=== PATIENT | female | born 1975 | race American Indian/Alaskan Native ===

== ENCOUNTER 2016-12-28 17:36 | Emergency (ER) | payer OTHER ==
[2016-12-28 19:15] LABS: Basophils % (Auto) 0.7 % (0.0-1.8); Eosinophils % (Auto) 0.9 % (0.0-4.3); Hematocrit 40.2 % (30.3-42.9); Hemoglobin 13.1 gm/dl (10.1-14.3); Mean Corpuscular HGB Conc 33 % (30-34); Mean Corpuscular Hemoglobin 30 pg (28-32); Mean Corpuscular Volume 93 fl (79-97); Platelet Count 234 K/mm3 (140-440); Red Blood Count 4.34 M/mm3 (3.65-5.03); Red Cell Distribution Width 13.9 % (13.2-15.2); White Blood Count 6.2 K/mm3 (4.5-11.0)
[2016-12-28 19:25] LABS: INR 0.89 (0.87-1.13)
[2016-12-28 19:26] LABS: Partial Thromboplastin Time 24.7 Sec. (24.2-36.6)
[2016-12-28 19:29] LABS: Anion Gap 19 mmol/L; BUN/Creatinine Ratio 21.42; Blood Urea Nitrogen 15 mg/dL (7-17); Calcium 8.9 mg/dL (8.4-10.2); Carbon Dioxide 24 mmol/L (22-30); Chloride 99.4 mmol/L (98-107); Glucose 99 mg/dL (65-100); Potassium 3.6 mmol/L (3.6-5.0); Sodium 139 mmol/L (137-145)
[2016-12-28 19:33] LABS: Creatine Kinase 57 units/L (30-135)
[2016-12-28 19:34] LABS: Creatine Kinase MB < 1.0 ng/mL (0.0-4.0)
--- NOTE | 2016-12-29 03:44 | Emergency Department Report ---
ED Shortness of Breath HPI - General Chief Complaint: Dyspnea/Respdistress Stated Complaint: SOB Time Seen by Provider: 12/29/16 03:28 Source: patient Mode of arrival: Ambulatory Limitations: No Limitations - History of Present Illness Initial Comments: 41-year-old female with a past medical history of morbid obesity and pulmonary embolism in 2008 presents to the hospital complains of sudden onset shortness of breath and chest pain. Patient states she was resting watching TV. She develops shortness of breath that was worse with exertion. Patient began coughing and having left-sided chest tightness with wheezing. Patient now complains of a dull left-sided chest pain as worse with inspiration and palpation. Patient has chronic lower extremity swelling with right greater than left secondary to previous ankle surgery. She does not complain of any increased leg swelling, or calf tenderness. She is not currently on Coumadin or any other anticoagulation. Vision denies any persistent coughing or fever. Previous medical record review patient was diagnosed with PE on CT in July 2009 however, she has since had a negative V/Q scan in 2013. - Related Data Home Medications Medication Instructions Recorded Confirmed Last Taken Atenolol [Tenormin] 50 mg PO QPM 12/09/14 12/29/16 12/27/16 Multivitamin Tab [Multiple Vitamin 1 each PO QDAY 12/29/16 12/29/16 Unknown TAB (Theragran)] Allergies Allergy/AdvReac Type Severity Reaction Status Date / Time levothyroxine sodium Allergy Swelling Verified 12/28/16 17:49 meperidine HCl [From Demerol] Allergy Seizure Verified 12/28/16 17:49 morphine Allergy Unknown Verified 12/28/16 17:49 oxycodone Allergy Vomiting Verified 12/28/16 17:49 ED Review of Systems ROS: Stated complaint: SOB Other details as noted in HPI Comment: All other systems reviewed and negative Other: Constitutional: No fevers chills Eyes: No eye pain visual changes ENT: No ear pain or throat pain Neck: Denies pain Respiratory: Denies cough wheezing Cardiovascular: Denies palpitations, syncope GI: Denies abdominal pain, nausea : Denies dysuria Musculoskeletal: Denies back pain, joint swelling Skin: Denies rash, lesions, erythema Neurologic: Denies headache, numbness, weakness Psychiatric: Denies suicidal ideation, hallucinations ED Past Medical Hx - Past Medical History Hx Hypertension: Yes Hx Congestive Heart Failure: No Hx Pulmonary Embolism: Yes (07/2009) Hx Arthritis: Yes Hx Asthma: No Hx HIV: No Additional medical history: OBESITY - Surgical History Hx Cholecystectomy: Yes (2001) Additional Surgical History: hysterectomy. RIGHT SHOULDER SPUR REMOVED. RIGHT ANKLE SURGERY. INGUINAL HERNIA SURGERY - Social History Smoking Status: Never Smoker Substance Use Type: Alcohol - Medications Home Medications: Home Medications Medication Instructions Recorded Confirmed Last Taken Type Atenolol [Tenormin] 50 mg PO QPM 12/09/14 12/29/16 12/27/16 History Multivitamin Tab [Multiple Vitamin 1 each PO QDAY 12/29/16 12/29/16 Unknown History TAB (Theragran)] ED Physical Exam - General Limitations: No Limitations - Other Other exam information: General: No limitations, patient is alert in no acute distress Head exam: Atraumatic, normocephalic Eyes exam: Normal appearance, pupils equal reactive to light, extraocular movements intact ENT: Moist mucous membrane, normal oropharynx Neck exam: Normal inspection, full range of motion, no meningismus nontender Respiratory exam: Clear to auscultation bilateral, no wheezes, rales, crackles Cardiovascular: Normal rate and rhythm, reproducible left upper chest wall tenderness Abdomen: Soft, nondistended, and nontender, with normal bowel sounds, no rebound, or guarding Extremity: Full range of motion normal inspection no deformity, no calf tenderness or edema Back: Normal Inspection, full range of motion, no tenderness Neurologic: Alert, oriented x3, cranial nerves intact, no motor or sensory deficit Psychiatric: normal affect, normal mood Skin: Warm, dry, intact ED Course Vital Signs 12/28/16 12/29/16 12/29/16 17:51 03:50 04:00 Temperature 98.1 F 98.3 F Pulse Rate 88 74 78 Respiratory 22 18 13 Rate Blood Pressure 161/106 141/89 Blood Pressure 145/81 [Right] O2 Sat by Pulse 96 97 99 Oximetry 12/29/16 06:04 Temperature Pulse Rate 78 Respiratory 18 Rate Blood Pressure Blood Pressure 152/85 [Right] O2 Sat by Pulse 96 Oximetry - Reevaluation(s) Reevaluation #1: 12/29/16 06:19 Patient initially declined pain medication. At this time all her results are available and she was informed that she will be discharged. She continues to have reproducible left upper chest wall tenderness. She is agreeable to receiving [place] prior to discharge states she has Lortab at home. ED Medical Decision Making - Lab Data Result diagrams: 12/28/16 18:52 12/28/16 18:52 Lab Results 12/28/16 12/28/16 12/28/16 Range/Units 18:52 18:52 18:52 WBC 6.2 (4.5-11.0) K/mm3 RBC 4.34 (3.65-5.03) M/mm3 Hgb 13.1 (10.1-14.3) gm/dl Hct 40.2 (30.3-42.9) % MCV 93 (79-97) fl MCH 30 (28-32) pg MCHC 33 (30-34) % RDW 13.9 (13.2-15.2) % Plt Count 234 (140-440) K/mm3 Lymph % (Auto) 23.5 (13.4-35.0) % [place] % (Auto) 6.7 (0.0-7.3) % Eos % (Auto) 0.9 (0.0-4.3) % Baso % (Auto) 0.7 (0.0-1.8) % Lymph # 1.5 (1.2-5.4) K/mm3 [place] # 0.4 (0.0-0.8) K/mm3 Eos # 0.1 (0.0-0.4) K/mm3 Baso # 0.0 (0.0-0.1) K/mm3 Seg Neutrophils % 68.2 (40.0-70.0) % Seg Neutrophils # 4.2 (1.8-7.7) K/mm3 PT 11.9 L (12.2-14.9) Sec. INR 0.89 (0.87-1.13) APTT 24.7 (24.2-36.6) Sec. Sodium 139 (137-145) mmol/L Potassium 3.6 (3.6-5.0) mmol/L Chloride 99.4 (98-107) mmol/L Carbon Dioxide 24 (22-30) mmol/L Anion Gap 19 mmol/L BUN 15 (7-17) mg/dL Creatinine 0.7 (0.7-1.2) mg/dL Estimated GFR > 60 ml/min BUN/Creatinine Ratio 21.42 % Glucose 99 (65-100) mg/dL Calcium 8.9 (8.4-10.2) mg/dL Total Creatine Kinase (30-135) units/L CK-MB (CK-2) (0.0-4.0) ng/mL CK-MB (CK-2) Rel Index (0-4) Troponin T < 0.010 (0.00-0.029) ng/mL NT-Pro-B Natriuret Pep (0-450) pg/mL 12/28/16 12/29/16 Range/Units 18:52 04:04 WBC (4.5-11.0) K/mm3 RBC (3.65-5.03) M/mm3 Hgb (10.1-14.3) gm/dl Hct (30.3-42.9) % MCV (79-97) fl MCH (28-32) pg MCHC (30-34) % RDW (13.2-15.2) % Plt Count (140-440) K/mm3 Lymph % (Auto) (13.4-35.0) % [place] % (Auto) (0.0-7.3) % Eos % (Auto) (0.0-4.3) % Baso % (Auto) (0.0-1.8) % Lymph # (1.2-5.4) K/mm3 [place] # (0.0-0.8) K/mm3 Eos # (0.0-0.4) K/mm3 Baso # (0.0-0.1) K/mm3 Seg Neutrophils % (40.0-70.0) % Seg Neutrophils # (1.8-7.7) K/mm3 PT (12.2-14.9) Sec. INR (0.87-1.13) APTT (24.2-36.6) Sec. Sodium (137-145) mmol/L Potassium (3.6-5.0) mmol/L Chloride (98-107) mmol/L Carbon Dioxide (22-30) mmol/L Anion Gap mmol/L BUN (7-17) mg/dL Creatinine (0.7-1.2) mg/dL Estimated GFR ml/min BUN/Creatinine Ratio % Glucose (65-100) mg/dL Calcium (8.4-10.2) mg/dL Total Creatine Kinase 57 62 (30-135) units/L CK-MB (CK-2) < 1.0 < 1.0 (0.0-4.0) ng/mL CK-MB (CK-2) Rel Index 1.7 1.6 (0-4) Troponin T < 0.010 (0.00-0.029) ng/mL NT-Pro-B Natriuret Pep 135.3 (0-450) pg/mL - EKG Data -: EKG Interpreted by Me (sinus rate 76 ) - EKG Data When compared to previous EKG there are: no significant change (compared to 04/2016) - Radiology Data Radiology results: image reviewed (cxr pa/lat: britton) - Medical Decision Making She has reproducible upper left chest wall tenderness and pain. It appears that she had episode of shortness of breath and also bronchial spasm upon presentation. This seems to has resolved spontaneously without the addition of nebs. Patient has an unremarkable EKG with no acute changes, 2 sets of negative cardiac enzymes, no symptoms of a DVT, and a normal VQ scan. Patient is stable for discharge at that time and blood pressure has improved spontaneously as well without medication. Patient declines prescription for pain meds already takes Lortab at home. - Differential Diagnosis bronchospasm, bronchitis, pneumonia, pneumothorax, PE, PR, atypical chest p Critical Care Time: No Critical care attestation.: If time is entered above; I have spent that time in minutes in the direct care of this critically ill patient, excluding procedure time. ED Disposition Clinical Impression: Chest wall pain, Morbid obesity, Bronchospasm Disposition: DISCHARGED TO HOME OR SELFCARE Is pt being admited?: No Does the pt Need Aspirin: No Condition: Stable Instructions: Chest Pain (ED), Bronchospasm (ED) Additional Instructions: Continue your current meds. Return if symptoms worsen. Referrals: DANIELLE HASKINS [Other] - 3-5 Days Time of Disposition: 06:23
[2016-12-29 05:03] LABS: Creatine Kinase 62 units/L (30-135)
[2016-12-29 05:04] LABS: Creatine Kinase MB < 1.0 ng/mL (0.0-4.0)
[2016-12-29 06:04] VITALS: BP 152/85
--- NOTE | 2016-12-29 06:10 | Nuclear Medicine Report ---
FINAL REPORT PROCEDURE: NM LUNG SCAN PERF/VENT TECHNIQUE: 5 mCi Tc-99m MAA was injected IV for pulmonary perfusion imaging in multiple projections. 15 MCi xenon-133 was inhaled for pulmonary ventilation imaging in multiple projections. Injection site: RIGHT antecubital fossa. CPT 61579 REGULATORY GUIDELINES: The patient was released based upon guidelines established in [place] State Regulations for Protection Against Radiation, Chapter 1177-96-94-35, Release of Individuals Containing Radioactive Drugs or Implants. HISTORY: sob, cp, hx of pe COMPARISON: No prior studies are available for comparison. FINDINGS: Perfusion: No defects . Ventilation: No defects . IMPRESSION: Normal Examination
[2016-12-29] MEDS ORDERED: NORCO 5/325 PO ONE (06:19)
--- NOTE | 2016-12-30 08:15 | XRay Report ---
ROUTINE CHEST, TWO VIEWS: PA and lateral views demonstrate the heart and mediastinal contour to be of normal size and shape. The lungs are clear and fully expanded and the soft tissues and bony structures are normal. IMPRESSION: Normal study.
== END 2016-12-29 06:33 | disposition home or self-care (01) ==
LOC: ED 17:36
DX: R07.89 Other chest pain (principal); E66.01 Morbid (severe) obesity due to excess calories; J98.01 Acute bronchospasm; I10 Essential (primary) hypertension; M19.90 Unspecified osteoarthritis, unspecified site; Z88.5 Allergy status to narcotic agent; Z86.711 Personal history of pulmonary embolism
CPT/HCPCS: 36415; 71020; 78582; 80048; 82550; 82553; 83880; 84484; 85025; 85610; 85730; 93005; 93010; 99284; A9540; A9558

== ENCOUNTER 2017-04-03 08:47 | Outpatient (CLI) | payer OTHER | END 2017-04-03 08:48 | disposition home or self-care (01) | LOC: ECHO 08:47 | PROVIDERS: ATTEND Internal Medicine | DX: Z01.818 Encounter for other preprocedural examination (principal); I10 Essential (primary) hypertension; I07.1 Rheumatic tricuspid insufficiency; I37.1 Nonrheumatic pulmonary valve insufficiency | CPT/HCPCS: C8929; Q9957 ==

== ENCOUNTER 2020-06-22 09:09 | Day surgery (SDC) | payer OTHER ==
[~2020-06-22 09:09] MED LIST: CELECOXIB 200 MG CAP PO NR; GABAPENTIN 300 MG CAP PO NR; GLYCOPYRROLATE 0.4 MG/2 ML INJ ONE; LACTATED RINGERS 1,000 ML IV SCH; LIDOCAINE MPF (2%) 20 MG/1 ML VIAL 5 ML ONE; MAGNESIUM OXIDE 400 MG TAB PO SCH; MIDAZOLAM 2 MG/2 ML INJ IV NR; ONDANSETRON 4 MG/2 ML INJ ONE; PHENYLEPHRINE/NS 1,000 MCG/10 ML SYRINGE (OR USE) IV ONE; ceFAZolin/STERILE WATER 2 GM/20 ML SYRINGE IV SCH; dexAMETHasone 20 MG/5 ML VIAL ONE
[2020-06-22] MEDS ORDERED: fentaNYL 100 MCG/2 ML INJ IV PRN (09:27)
[2020-06-22] MEDS ORDERED: HYDROcodone/ACETAMINOPHEN 5-325 MG TAB PO PRN (09:27)
--- NOTE | 2020-06-22 09:27 | Anesthesia Consultation ---
Anesthesia Consult and Med Hx Date of service: 06/22/20 - Airway Anesthetic Teeth Evaluation: Good ROM Head & Neck: Adequate Mental/Hyoid Distance: Adequate Mallampati Class: Class II Intubation Access Assessment: Probably Good - Pulmonary Exam CTA: Yes - Cardiac Exam Cardiac Exam: RRR - Pre-Operative Health Status ASA Pre-Surgery Classification: ASA3 Proposed Anesthetic Plan: General - Pulmonary Hx Smoking: No Hx Respiratory Symptoms: Yes (URI 1 month ago with congestion, no pulm symptoms, now resolved) Hx Sleep Apnea: Yes (reduced to "mild" after weight loss) - Cardiovascular System Hx Hypertension: Yes (no medss x3 yrs) Hx Heart Attack/AMI: No Hx Percutaneous Transluminal Coronary Angioplasty (PTCA): No Hx Cardia Arrhythmia: No - Central Nervous System CVA: No Hx Back Pain: Yes (chronic) - Gastrointestinal Hx Gastroesophageal Reflux Disease: No - Endocrine Hx Renal Disease: No Hx Liver Disease: No Hx Insulin Dependent Diabetes: No Hx Non-Insulin Dependent Diabetes: No Hx Hypothyroidism: Yes - Other Systems Hx Substance Use: Yes (occasional THC) Hx Obesity: Yes (BMI 54) - Additional Comments Anesthesia Medical History Comments: Hx PONV with previous anesthetics. Improved with scop patch and IV antiemetics.
--- NOTE | 2020-06-22 09:27 | Anesthesia Day of Surgery ---
Anesthesia Day of Surgery - Day of Surgery Patient Examined: Yes Patient H&P Reviewed: Yes Patient is NPO: Yes
[2020-06-22] MEDS ORDERED: propofoL 200 MG/20 ML VIAL IV ONE (09:52)
[2020-06-22] MEDS ORDERED: HYDROmorphone 1 MG/1 ML INJ ONE ×2 (09:52→10:52)
[2020-06-22] MEDS ORDERED: SCOPOLAMINE TRANSDERMAL PATCH 72 HR TD NR (10:00)
[2020-06-22] MEDS ORDERED: BUPIVACAINE-EPINEPHRINE/PF 0.25%-1:200,000 (30 ML) VIAL INFILTRATI ONE ×2 (10:42→11:57)
[2020-06-22] MEDS ORDERED: fentaNYL 100 MCG/2 ML INJ ONE (11:24)
[2020-06-22 12:30] VITALS: BP 144/78
--- NOTE | 2020-06-22 16:57 | Post Anesthesia Evaluation ---
- Post Anesthesia Evaluation Patient Participated: Yes Airway Patent: Yes Stable Respiratory Function: Yes Nausea/Vomiting: No Temp > 96.8F: Yes Pain Manageable: Yes Adequeate Hydration: Yes Anesthesia Complications: No
--- NOTE | 2020-06-22 17:19 | Operative Report ---
PREOPERATIVE DIAGNOSES: 1. Right knee with degenerative joint disease, meniscal tear. 2. Morbid obesity. POSTOPERATIVE DIAGNOSES: 1. Right knee tear posterior horn medial meniscus. 2. Hypertrophic plica and ligamentum. PROCEDURE PERFORMED: 1. Right knee arthroscopy with partial medial meniscectomy -- complex -- morbid obesity. 2. Arthroscopic synovectomy -- excision plica and ligamentum. SURGEON: Andrew Salazar MD MOLD HOLDER: Simone Flores CSA ANESTHESIA: General. ESTIMATED BLOOD LOSS: Minimal. COMPLICATIONS: None. DESCRIPTION OF PROCEDURE: The patient underwent successful anesthesia. She was morbidly obese. She was ____, not place a tourniquet on her, prepped and draped in usual fashion. The portals were pre-infiltrated with epinephrine and Marcaine with limited bleeding. Antibiotics were pre-administered. Arthroscopy was carried out as noted with difficulty, bleeding meticulously controlled with ____ surface. Large hypertrophic ligamentum plica were identified, which were excised. Patellofemoral joint was relatively well preserved as was the lateral compartment. The meniscus was relatively well preserved. Limited fraying was gently debrided. The notch demonstrated normal ACL and PCL. Medial compartment demonstrated a flap tear in the posterior horn, gently debrided. This allowed for excellent preservation of peripheral stable rim at the peripheral 70%. The majority of the body and anterior horn well preserved. Articular surface did demonstrate fissuring, but no significant loss was noted. Thorough examination, irrigation and debridement of joint was carried out of both portals. Of note, this is a very complex procedure given the patient's size. The ports were closed with nylon suture. She was taken to recovery in satisfactory condition having tolerated the procedure well. JOB# [id number] RDP/NTS
== END 2020-06-22 09:10 | disposition home or self-care (01) ==
LOC: OR 09:09
PROVIDERS: ATTEND Orthopaedic Surgery
DX: S83.241A Other tear of medial meniscus, current injury, right knee, initial encounter (principal); Z11.59 Encounter for screening for other viral diseases; E66.9 Obesity, unspecified; G43.909 Migraine, unspecified, not intractable, without status migrainosus; I10 Essential (primary) hypertension; M19.90 Unspecified osteoarthritis, unspecified site; E03.9 Hypothyroidism, unspecified; F32.9 Major depressive disorder, single episode, unspecified; Z98.890 Other specified postprocedural states; Z88.5 Allergy status to narcotic agent; Z79.899 Other long term (current) drug therapy; Z86.711 Personal history of pulmonary embolism; Z86.718 Personal history of other venous thrombosis and embolism; Z90.49 Acquired absence of other specified parts of digestive tract; Z90.721 Acquired absence of ovaries, unilateral; Z88.8 Allergy status to other drugs, medicaments and biological substances
CPT/HCPCS: 29881; J0690; J1100; J1170; J2250; J2370; J2405; J2704; J3010; J7120; U0003

== ENCOUNTER 2020-10-02 17:14 | Emergency (ER) | payer OTHER ==
[2020-10-02 19:09] VITALS: BP 200/128
== END 2020-10-02 20:07 | disposition left against medical advice (07) ==
LOC: ED 17:14
DX: M79.604 Pain in right leg (principal); M79.605 Pain in left leg; M79.89 Other specified soft tissue disorders; Z53.21 Procedure and treatment not carried out due to patient leaving prior to being seen by health care provider